=== PATIENT | male | born 1970 | race Hispanic/Latino ===

== ENCOUNTER 2021-11-07 06:30 | Day surgery (SDC) | payer BC ==
[2021-11-07] MEDS ORDERED: ASPIRIN EC 325 MG TAB PO NR (06:56)
[2021-11-07] MEDS ORDERED: ASPIRIN EC 325 MG TAB PO ONE (07:22)
[2021-11-07] MEDS: SODIUM CHLORIDE 0.9% 500 ML 500 ML IV SCH ×2 (07:30→09:48)
[2021-11-07 07:54] LABS: INR 0.9 (0.87-1.13); Partial Thromboplastin Time 27.2 Sec. (24.2-36.6)
[2021-11-07 07:56] LABS: Hematocrit 45.8 % (35.5-45.6); Hemoglobin 15.3 gm/dl (11.8-15.2); Red Blood Count 4.81 M/mm3 (3.65-5.03)
[2021-11-07 07:57] LABS: Basophils % (Auto) 0.4 % (0.0-1.8); Eosinophils # (Auto) 0.2 K/mm3 (0.0-0.4); Eosinophils % (Auto) 2.8 % (0.0-4.3); Lymphocytes # (Auto) 1.8 K/mm3 (1.2-5.4); Mean Corpuscular HGB Conc 33 % (32-34); Mean Corpuscular Volume 95 fl (84-94); Monocytes # (Auto) 0.4 K/mm3 (0.0-0.8); Monocytes % (Auto) 6.7 % (0.0-7.3); Platelet Count 190 K/mm3 (140-440); Red Cell Distribution Width 12.8 % (13.2-15.2)
[2021-11-07] MEDS ORDERED: HEPARIN/NS 5000 UNIT/500ML 1,000 ML IR ONE (08:17)
[2021-11-07] MEDS ORDERED: VERAPAMIL 5 MG/2 ML INJ ONE (08:18)
[2021-11-07] MEDS ORDERED: HEPARIN 10,000 UNITS/10 ML VIAL ONE (08:18)
[2021-11-07] MEDS: fentaNYL 100 MCG/2 ML INJ ONE ×2 (08:38→09:48)
[2021-11-07] MEDS: MIDAZOLAM 2 MG/2 ML INJ ONE ×4 (08:38→10:22)
[2021-11-07] MEDS: LIDOCAINE (2%) 20 MG/1 ML VIAL 20 ML MDV INFILTRATI ONE ×2 (08:39→09:54)
[2021-11-07 09:12] LABS: BUN/Creatinine Ratio 20; Blood Urea Nitrogen 16 mg/dL (9-20); Calcium 9.5 mg/dL (8.4-10.2); Hemolysis Index 9
[2021-11-07] MEDS: NITROGLYCERIN SYRINGE 3 ML ONE ×2 (09:54→10:37)
--- NOTE | 2021-11-07 10:59 | Electrocardiograph Report ---
[facility] Test Date: 2021-11-07 Test Time: 07:20:45 Pat Name: ROSE ISBELL Department: Room: Gender: M Currency Counter: [place]EX[place] : [id number] Requested By: RIKKI HARE Order Number: [id number] Reading MD: Rikki Hare Measurements Intervals [place] Rate: 70 P: 55 MT: 201 QRS: -7 QRSD: 94 T: 29 QT: 381 QTc: 411 Interpretive Statements Sinus rhythm nonspecific st-t No previous ECG available for comparison Electronically Signed On 11-07-2021 10:58:27 EST by Rikki Hare
--- NOTE | 2021-11-07 11:11 | Cardiac Catherization Report ---
DATE OF SERVICE: 11/07/2021 PROCEDURE: Left heart catheterization. DONE BY: Urbano Hare MD CLINICAL INFORMATION: A 50-year-old male with obesity, had persistent shortness of breath despite medical therapy and is here for left heart cath. Left heart cath done with moderate sedation started at 09:48, finished at 10:09, 21 minutes of moderate sedation. DESCRIPTION OF PROCEDURE: Procedure was done via the right radial artery, sterile technique and local anesthesia. A 6-Angolan radial sheath inserted. Left system engaged with JL3.5 catheter. Left main is large and patent, bifurcates into large LAD, is patent. Mid to distal becomes a small to medium caliber, patent. Diagonal 1 is medium caliber, patent. Circumflex is a large caliber vessel goes into a large OM1 that is patent. RCA is engaged with JR4 is a large, dominant vessels patent. PDA, PLV are small to medium caliber, patent. LV gram done in [place] and [place] shows normal LV function, LVEDP 21 mmHg, LV is 119, aortic is 119/80, no gradient across aortic valve on pullback. The 5-Angolan catheters all taken over guidewire. A 6-Angolan radial sheath was discontinued. Radial band applied. No hematoma, no bleeding. SUMMARY: Left main patent, LAD patent, circumflex patent, OM1 patent. RCA large, dominant, patent with normal LV function with normal left end diastolic pressure. The patient will continue medical management for shortness of breath. TID: [id number] RECEIPT: [id number] RUIZ/DARIAN/THERON
--- NOTE | 2021-11-07 11:44 | Short Stay Summary ---
Short Stay Documentation Date of service: 11/07/21 - History H&P: obtained from office - Allergies and Medications Current Medications: Allergies No Known Allergies Allergy (Verified 11/07/21 06:56) Home Medications Medication Instructions Recorded Confirmed Last Taken Type Albuterol Sulfate [Proair 90 mcg IH DAILY 11/07/21 11/07/21 11/06/21 History Respiclick] AtorvaSTATin [Lipitor] 20 mg PO QHS 11/07/21 11/07/21 11/06/21 History Cetirizine HCl [ZyrTEC 10mg cap] 10 mg PO DAILY 11/07/21 11/07/21 11/06/21 History Ibuprofen [Motrin] 800 mg PO Q8HR PRN 11/07/21 11/07/21 11/06/21 History Omeprazole 40 mg PO DAILY 11/07/21 11/07/21 11/06/21 History Tadalafil [Cialis] 5 mg PO DAILY 11/07/21 11/07/21 11/06/21 History buPROPion XL [Wellbutrin Xl] 150 mg PO QAM 11/07/21 11/07/21 11/06/21 History Active Medications Sodium Chloride (Nacl 0.9% 500 Ml) 500 mls @ 50 mls/hr IV DIRECT FLORENCIO Stop: 11/07/21 16:59 Last Admin: 11/07/21 09:48 Dose: 50 mls/hr Documented by: - Physical exam Integumentary: other (Dressing clean, dry, and intact. No signs of bleeding or hematoma) - Brief post op/procedure progress note Date of procedure: 11/07/21 Pre-op diagnosis: abnormal stress test Post-op diagnosis: other (Normal coronary arteries) Anesthesia: local Estimated blood loss: minimal - Hospital course Hospital course: Patient underwent cardiac cath through right radial. No intervention indicated. Patient tolerated procedure well with no complications. - Disposition Condition at discharge: Good Disposition: 01 HOME / SELF CARE / HOMELESS Short Stay Discharge Plan Diet: low fat, low cholesterol, low salt Wound: keep clean and dry, per your surgeon's advice Follow up with: ERIN SELYB [Other] - 7 Days RIKKI HARE MD [Staff Physician] - 12/16/21 3:30 pm (Patient has a follow- up appointment with Dr. Hare on 12/16/2021 at 3:30 PM at our [place] location. Phone #[phone])
[2021-11-07 14:17] VITALS: BP 127/73
== END 2021-11-07 13:30 | disposition home or self-care (01) ==
LOC: CATHLABREC 06:30
PROVIDERS: ATTEND Internal Medicine
DX: R94.39 Abnormal result of other cardiovascular function study (principal); E66.01 Morbid (severe) obesity due to excess calories; E78.00 Pure hypercholesterolemia, unspecified; G47.30 Sleep apnea, unspecified; K21.9 Gastro-esophageal reflux disease without esophagitis; F41.9 Anxiety disorder, unspecified; Z87.891 Personal history of nicotine dependence; Z79.899 Other long term (current) drug therapy; Z98.890 Other specified postprocedural states; Z68.41 Body mass index [BMI] 40.0-44.9, adult; Z82.49 Family history of ischemic heart disease and other diseases of the circulatory system
CPT/HCPCS: 36415; 80048; 85025; 85610; 85730; 93005; 93458; 99156; C1894; J1644; J1815; J2250; J3010; J3490; J7040; Q9967